=== PATIENT | male | born 1985 | race Asian ===

== ENCOUNTER 2024-06-14 14:56 | Outpatient (CLI) | payer BC | END 2024-06-14 14:57 | disposition home or self-care (01) | LOC: CSHULT 14:56 | PROVIDERS: ATTEND Family Medicine | DX: E04.1 Nontoxic single thyroid nodule (principal); N28.1 Cyst of kidney, acquired; E04.2 Nontoxic multinodular goiter | CPT/HCPCS: 76536; 76770 ==

== ENCOUNTER 2024-06-28 08:13 | Outpatient (CLI) | payer BC ==
[2024-06-28] MEDS ORDERED: Iopamidol 370 76% 100 ML VIAL ONE (10:50)
== END 2024-06-28 08:14 | disposition home or self-care (01) ==
LOC: CSHCT 08:13
PROVIDERS: ATTEND Family Medicine
DX: N28.1 Cyst of kidney, acquired (principal)
CPT/HCPCS: 74170; Q9967